=== PATIENT | female | born 1970 | race Caucasian/White ===

== ENCOUNTER 2019-03-01 01:45 | Emergency (ER) | payer OTHER, SELFPAY ==
[~2019-03-01] VITALS: Ht 157.5 cm; Wt 57.0 kg
[2019-03-01] MEDS ORDERED: LIDOCAINE HCL/EPINEPHRINE 1%-EPI 1:100,000 30 ML VIAL INFIL ONE (09:00)
[2019-03-01] MEDS ORDERED: KETOROLAC 30MG/ML VIAL IM ONE (09:15)
[2019-03-01] MEDS ORDERED: LIDOCAINE HCL/EPINEPHRINE 1%-EPI 1:100,000 20 ML VIAL INFIL NR (09:15)
[2019-03-01 10:46] VITALS: BP 115/68
== END 2019-03-01 10:55 | disposition home or self-care (01) ==
LOC: EDBD 01:45 → ER 01:52
DX: L03.317 Cellulitis of buttock (principal); E11.9 Type 2 diabetes mellitus without complications; Z90.710 Acquired absence of both cervix and uterus
CPT/HCPCS: 96372; 99283; J1885; J3490